=== PATIENT | male | born 1950 | race Caucasian/White ===

== ENCOUNTER 2021-06-29 16:26 | Inpatient (IN) | payer MEDICARE, OTHER ==
[~2021-06-29] VITALS: Ht 172.7 cm; Wt 65.1 kg
[2021-06-29] MEDS ORDERED: PIPERACILLIN /TAZOBACTAM 3.375 G in IV D5W 50 ML IV ONE (17:00)
[2021-06-29] MEDS ORDERED: IV NS 0.9% 1,000 ML BAG IV ONE (17:00)
[2021-06-29] MEDS ORDERED: VANCOMYCIN 1 GM in IV D5W 250 ML IV ONE (17:00)
[2021-06-29] MEDS ORDERED: NOREPINEPHRINE 8 MG in IV NS 0.9% 250 ML IV ONE (18:00)
[2021-06-29] MEDS ORDERED: FINA5TAB11 PO (18:08)
[2021-06-29] MEDS ORDERED: PHEN100C4 PO (18:08)
[2021-06-29] MEDS ORDERED: FAMO-131 PO (18:08)
[2021-06-29] MEDS ORDERED: CALC1TAB30 PO (18:08)
[2021-06-29] MEDS ORDERED: FURO-145 PO (18:08)
[2021-06-29] MEDS ORDERED: MULT-439 PO (18:08)
[2021-06-29] MEDS ORDERED: TRAM50TA2 PO (18:08)
[2021-06-29] MEDS ORDERED: SENN8.6T19 PO (18:08)
[2021-06-29] MEDS ORDERED: LISI20TA30 PO (18:08)
[2021-06-29] MEDS ORDERED: [UNRECOGNIZED DRUG - CODE] PO (18:08)
[2021-06-29] MEDS ORDERED: ZINC220C6 PO (18:08)
[2021-06-29] MEDS ORDERED: CHOL200013 PO (18:08)
[2021-06-29] MEDS ORDERED: APIX2.5T PO (18:08)
--- NOTE | 2021-06-29 19:00 | NUR ---
[facility]IC MOYA FROM [facility] FOR LOW O2 SAT: 89% ON RA, AND LOW BP=85/49. PT LETHARGIC, OPENS EYES. PT ON 12L VIA SIMPLE MASK DURING CHANGE OF SHIFT. PT ON LEVO DRIP AT 0.1 MCG/KG/MIN INFUSING AT L HAND 18G. PT ATTACHED TO MONITOR AND PULSE OX. WILL CONT TO MONITOR PATIENT Addendum: 06/29/21 at 2041 by MURPHY NOTED PT WITH COLOSTOMY BAG
--- NOTE | 2021-06-29 19:28 | NUR ---
COVID, FLU SWAB COLLECTED SENT TO LAB
--- NOTE | 2021-06-29 19:28 | NUR ---
COVID, FLU SWAB COLLECTED SENT TO LAB
[2021-06-29 19:29] LABS: CALCIUM, SERUM 7.6 mg/dL (8.5-10.1); CARBON DIOXIDE 27 mmol/L (21-32); CHLORIDE 114 mmol/L (98-107); CREATININE 2.2 mg/dL (0.6-1.3); GLUCOSE 165 mg/dL (74-106); POTASSIUM 4.6 mmol/L (3.5-5.1); SODIUM SERUM 153 mmol/L (136-145)
[2021-06-29 19:33] LABS: UREA NITROGEN, BLOOD 81 mg/dL (7-18)
[2021-06-29 19:35] LABS: ALANINE AMINOTRANSFERASE 71 U/L (12-78); ALBUMIN 2.5 g/dL (3.4-5.0); ALKALINE PHOSPHATASE 133 U/L (46-116); ASPARTATE AMINOTRANSFERASE 61 U/L (15-37); BILIRUBIN,DIRECT 1.1 mg/dL (0.0-0.2); BILIRUBIN,TOTAL 1.9 mg/dL (0.2-1.0)
--- NOTE | 2021-06-29 19:40 | NUR ---
LACTIC ACID 2.8 BUN 81
--- NOTE | 2021-06-29 19:40 | NUR ---
LACTIC ACID 2.8 BUN 81
--- NOTE | 2021-06-29 20:03 | NUR ---
UNABLE TO INSERT F/C WILL RETRY
--- NOTE | 2021-06-29 20:03 | NUR ---
UNABLE TO INSERT F/C WILL RETRY
[2021-06-29 20:06] LABS: EOSINOPHILS % (AUTO) 0.1 % (0.0-6.0); LYMPHOCYTES # (AUTO) 0.9 K/uL (0.8-4.8); MONOCYTES # (AUTO) 2.9 K/uL (0.1-1.30); WHITE BLOOD COUNT (AUTO) 21.4 K/uL (4.3-11.0)
[2021-06-29 20:15] LABS: BASOPHILS # (AUTO) 0.3 K/uL (0.0-0.2); BASOPHILS % (AUTO) 1.3 % (0.0-2.0); HEMATOCRIT 49 % (39-51); HEMOGLOBIN 15.8 g/dL (13.5-17.5); MEAN CORPUSCULAR HGB CONC 32 g/dl (31.0-36.0); MEAN CORPUSCULAR VOLUME 96 fL (80-96); MONOCYTES % (AUTO) 13.7 % (2.0-12.0); NEUTROPHILS # (AUTO) 17.3 K/uL (1.8-8.9); NEUTROPHILS % (AUTO) 80.9 % (43.0-81.0); RED BLOOD CELL COUNT(AUTO) 5.14 MIL/uL (4.5-6.0)
[2021-06-29 20:26] LABS: PLATELET COUNT (AUTO) 429 K/uL (150-450)
[2021-06-29] MEDS ORDERED: ACETAMINOPHEN 325 MG TABLET PO PRN (20:30)
[2021-06-29] MEDS ORDERED: MAG HYDROX/AL HYDROX/SIMETH 30 ML UDC PO PRN (20:30)
[2021-06-29] MEDS ORDERED: ONDANSETRON HCL/PF 4 MG/2 ML VIAL IVP PRN (20:30)
[2021-06-29] MEDS ORDERED: MAGNESIUM HYDROXIDE 30 ML UDC PO PRN (20:30)
[2021-06-29] MEDS ORDERED: Z GUARD REMEDY 4 OZ OINT TP PRN (20:30)
[2021-06-29 21:11] LABS: ABG BASE EXCESS -1.3 mmol/L; ABG PCO2 33.1 mmHg (35.0-45.0); ABG PH 7.438 (7.350-7.450); COHb 0.5 % (0.5-1.5); MetHb 0.5 % (0.0-1.5); O2Hb 98.2 % (94.0-97.0); SITE, ABG Left Brachial; VENT MODE, BG Simple Mask
[2021-06-29] MEDS ORDERED: MEROPENEM 500 MG in IV NS 0.9% 50 ML IV SCH (21:30)
--- NOTE | 2021-06-29 22:45 | NUR ---
ICU 256
--- NOTE | 2021-06-29 22:45 | NUR ---
ICU 256
--- NOTE | 2021-06-29 23:00 | NUR ---
KAT CATHETER INSERTED 16 FR, DRAINING TO A CLOUDY, YELLOW OUTPUT. URINE COLLECTED AND SENT TO LAB. ASEPTIC TECHNIQUE WAS OBSERVED.
--- NOTE | 2021-06-29 23:00 | NUR ---
KAT CATHETER INSERTED 16 FR, DRAINING TO A CLOUDY, YELLOW OUTPUT. URINE COLLECTED AND SENT TO LAB. ASEPTIC TECHNIQUE WAS OBSERVED.
--- NOTE | 2021-06-29 23:33 | NUR ---
REPORT GIVEN TO KRISTI IBARRA
--- NOTE | 2021-06-29 23:33 | NUR ---
REPORT GIVEN TO KRISTI IBARRA
--- NOTE | 2021-06-29 23:43 | NUR ---
PATIENT TRANSFERRED TO ICU 256 VIA ACLS PROTOCOL
--- NOTE | 2021-06-29 23:43 | NUR ---
PATIENT TRANSFERRED TO ICU 256 VIA ACLS PROTOCOL
--- NOTE | 2021-06-29 23:50 | NUR ---
PATIENT TRANSFERRED UNDER ACLS
--- NOTE | 2021-06-29 23:50 | NUR ---
PATIENT TRANSFERRED UNDER ACLS
--- NOTE | 2021-06-29 23:52 | NUR ---
Bebeto jacobson in [facility] - 06/29/21 at 2352 by ERVIN PATIENT TRANSFERRED UNDER ACLS
--- NOTE | 2021-06-29 23:52 | NUR ---
Bebeto jacobson in [facility] - 06/29/21 at 2352 by ERVIN PATIENT TRANSFERRED UNDER ACLS
[2021-06-29] MEDS: NOREPINEPHRINE 8 MG in IV NS 0.9% 242 ML IV PRN (23:55)
[2021-06-29 23:56] LABS: BILIRUBIN,URINE SMALL (NEGATIVE); COLOR,URINE YELLOW (YELLOW); LEUKOCYTE ESTERASE ,URINE MODERATE (NEGATIVE); NITRITE, URINE POSITIVE (NEGATIVE); PROTEIN,URINE 30 mg/dl (NEGATIVE); UGLUCOSE NEGATIVE (NEGATIVE)
[2021-06-30] VITALS (97 sets, daily range): BP systolic 72–124; BP diastolic 34–107
[2021-06-30] MEDS ORDERED: MEROPENEM 500 MG in IV NS 0.9% 50 ML IV ONE
[2021-06-30] MEDS: IV NS 0.9% 1,000 ML IV PRN ×3 (00:10→16:20)
[2021-06-30] MEDS: SENNOSIDES 8.6 MG TABLET PO SCH ×2 (00:49→21:03)
[2021-06-30] MEDS: APIXABAN 2.5 MG TABLET PO SCH ×3 (00:50→16:21)
[2021-06-30] MEDS ORDERED: MEROPENEM 500 MG VIAL IV ONE (00:54)
--- NOTE | 2021-06-30 02:12 | NUR ---
FISCAL SERVICES DIRECTOR CALLED [facility] TO GIVE INFO THAT PT WAS VACCINATED BUT UNKONW THE TYPE.
--- NOTE | 2021-06-30 02:12 | NUR ---
STUNT MAN CALLED [facility] TO GIVE INFO THAT PT WAS VACCINATED BUT UNKONW THE TYPE.
[2021-06-30 05:09] LABS: BASOPHILS # (AUTO) 0.2 K/uL (0.0-0.2); BASOPHILS % (AUTO) 0.8 % (0.0-2.0); EOSINOPHILS % (AUTO) 0.1 % (0.0-6.0); HEMATOCRIT 48 % (39-51); HEMOGLOBIN 15.3 g/dL (13.5-17.5); LYMPHOCYTES # (AUTO) 0.6 K/uL (0.8-4.8); MEAN CORPUSCULAR HGB CONC 32 g/dl (31.0-36.0); MEAN CORPUSCULAR VOLUME 96 fL (80-96); MONOCYTES # (AUTO) 2.3 K/uL (0.1-1.30); MONOCYTES % (AUTO) 11.3 % (2.0-12.0); NEUTROPHILS # (AUTO) 17.5 K/uL (1.8-8.9); NEUTROPHILS % (AUTO) 84.8 % (43.0-81.0); PLATELET COUNT (AUTO) 402 K/uL (150-450); RED BLOOD CELL COUNT(AUTO) 4.97 MIL/uL (4.5-6.0); WHITE BLOOD COUNT (AUTO) 20.6 K/uL (4.3-11.0)
[2021-06-30 05:41] LABS: CHOLESTEROL 100 mg/dL (<200); HDL CHOLESTEROL 36 mg/dL (40-60); LDL 58 mg/dL (0-99); TRIGLYCERIDES 57 mg/dL (30-150)
[2021-06-30 05:53] LABS: CALCIUM, SERUM 7.5 mg/dL (8.5-10.1); CARBON DIOXIDE 26 mmol/L (21-32); CHLORIDE 116 mmol/L (98-107); CREATININE 1.9 mg/dL (0.6-1.3); GLUCOSE 144 mg/dL (74-106); MAGNESIUM 2.6 mg/dL (1.8-2.4); PHOSPHORUS 4.8 mg/dL (2.5-4.9); POTASSIUM 4.7 mmol/L (3.5-5.1); SODIUM SERUM 153 mmol/L (136-145); UREA NITROGEN, BLOOD 75 mg/dL (7-18)
[2021-06-30 07:20] LABS: WBC,URINE 21-50 /HPF (0-3)
[2021-06-30 07:21] LABS: BACTERIA,URINE 1+ /HPF (None Seen); SQUAMOUS EPITHELIAL CELL,UR Rare /HPF (None Seen)
--- NOTE | 2021-06-30 08:00 | NUR ---
[facility]AVEL REGISTERED NURSE ONCOLOGY PT OPENS EYES TO TACTILE STIMULATION. DOES NO TRACK, DOES NOT FOLLOW COMMANDS. SPO2 100% ON 10L MASK. WILL TITRATE. BP STABLE ON LOW DOSE LEVO.
--- NOTE | 2021-06-30 08:00 | NUR ---
REHABILITATION THERAPY AIDE PT OPENS EYES TO TACTILE STIMULATION. DOES NO TRACK, DOES NOT FOLLOW COMMANDS. SPO2 100% ON 10L MASK. WILL TITRATE. BP STABLE ON LOW DOSE LEVO.
[2021-06-30] MEDS: CHOLECALCIFEROL 1,000 UNIT TABLET (VIT D3) PO SCH (08:57)
[2021-06-30] MEDS: ZINC SULFATE 220 MG CAPSULE PO SCH (08:57)
[2021-06-30] MEDS: CALCIUM CARB 250MG /VITAMIN D 1 UDTAB PO SCH (08:58)
[2021-06-30] MEDS: MULTIVITAMIN/LUTEIN/MINERALS 1 TAB PO SCH (08:58)
[2021-06-30] MEDS: PHENYTOIN EXTENDED RELEASE 100 MG CAPSULE PO SCH (08:58)
[2021-06-30] MEDS ORDERED: [UNRECOGNIZED DRUG - OTHER] PO SCH (09:00)
[2021-06-30] MEDS: MEROPENEM 1 G in IV NS 0.9% 100 ML IV SCH (12:08)
[2021-06-30] MEDS: NOREPINEPHRINE 8 MG in IV NS 0.9% 242 ML IV PRN (12:30)
[2021-06-30] MEDS ORDERED: VANCOMYCIN 1 GM in IV D5W 250 ML IV SCH (17:00)
[2021-07-01] VITALS (94 sets, daily range): BP systolic 86–122; BP diastolic 53–73
[2021-07-01] MEDS: MEROPENEM 1 G in IV NS 0.9% 100 ML IV SCH ×2 (00:01→11:31)
[2021-07-01] MEDS: NOREPINEPHRINE 8 MG in IV NS 0.9% 242 ML IV PRN ×3 (04:03→22:51)
[2021-07-01] MEDS: IV NS 0.9% 1,000 ML IV PRN (04:03)
[2021-07-01 05:23] LABS: BASOPHILS # (AUTO) 0.1 K/uL (0.0-0.2); BASOPHILS % (AUTO) 0.8 % (0.0-2.0); EOSINOPHILS % (AUTO) 0.5 % (0.0-6.0); HEMATOCRIT 47 % (39-51); LYMPHOCYTES # (AUTO) 0.6 K/uL (0.8-4.8); MEAN CORPUSCULAR HGB CONC 32 g/dl (31.0-36.0); MEAN CORPUSCULAR VOLUME 96 fL (80-96); MONOCYTES # (AUTO) 1.5 K/uL (0.1-1.30); MONOCYTES % (AUTO) 8.2 % (2.0-12.0); NEUTROPHILS # (AUTO) 16.1 K/uL (1.8-8.9); NEUTROPHILS % (AUTO) 87.5 % (43.0-81.0); PLATELET COUNT (AUTO) 489 K/uL (150-450); RED BLOOD CELL COUNT(AUTO) 4.85 MIL/uL (4.5-6.0); WHITE BLOOD COUNT (AUTO) 18.4 K/uL (4.3-11.0)
[2021-07-01 05:47] LABS: CALCIUM, SERUM 8.3 mg/dL (8.5-10.1); CARBON DIOXIDE 25 mmol/L (21-32); CHLORIDE 118 mmol/L (98-107); CREATININE 1.7 mg/dL (0.6-1.3); GLUCOSE 137 mg/dL (74-106); POTASSIUM 4.2 mmol/L (3.5-5.1); SODIUM SERUM 153 mmol/L (136-145); UREA NITROGEN, BLOOD 78 mg/dL (7-18)
--- NOTE | 2021-07-01 07:05 | NUR ---
RECEIVED PT ON BED OBTUNDED OPEN EYES TO STIMULI, SINUS RHYTHM ON THE MONITOR HR 90'S ON ROOM AIR SPO2 96-98% NO SOB NOTED, ON LEVOPHED AT 0.2 MCG/KG/MIN AND NS @ 100 ML/HR INFUSING VIA FANNY PICC HAVE R-WRIST # 20 AND L-HAND # 20 PATENT AND FLUSHED, HAVE COLOSTOMY BAG ON PLACE, HAVE KAT CATHETER IN PLACE DRAINING YELLOW URINE VIA GRAVITY, BED ON LOWEST POSITION AND LOCKED SIDE RAILS UP X2 WILL CONT TO MONITOR
[2021-07-01] MEDS: PHENYTOIN EXTENDED RELEASE 100 MG CAPSULE PO SCH (08:07)
[2021-07-01] MEDS: MULTIVITAMIN/LUTEIN/MINERALS 1 TAB PO SCH (08:08)
[2021-07-01] MEDS: CALCIUM CARB 250MG /VITAMIN D 1 UDTAB PO SCH (08:08)
[2021-07-01] MEDS: CHOLECALCIFEROL 1,000 UNIT TABLET (VIT D3) PO SCH (08:08)
[2021-07-01] MEDS: APIXABAN 2.5 MG TABLET PO SCH ×2 (08:10→17:04)
[2021-07-01] MEDS: ZINC SULFATE 220 MG CAPSULE PO SCH (08:12)
[2021-07-01] MEDS: IV D5/0.45 NACL 1,000 ML IV SCH ×2 (09:08→20:09)
[2021-07-01] MEDS: JEVITY 1.2 CAL 1,000 ML BOTTLE GT PRN (11:58)
[2021-07-01] MEDS: SENNOSIDES 8.6 MG TABLET PO SCH (22:25)
[2021-07-02] VITALS (43 sets, daily range): BP systolic 83–121; BP diastolic 44–70
[2021-07-02] MEDS: MEROPENEM 1 G in IV NS 0.9% 100 ML IV SCH ×2 (00:31→11:02)
[2021-07-02 04:56] LABS: CALCIUM, SERUM 7.7 mg/dL (8.5-10.1); CARBON DIOXIDE 24 mmol/L (21-32); CHLORIDE 118 mmol/L (98-107); CREATININE 1.5 mg/dL (0.6-1.3); GLUCOSE 140 mg/dL (74-106); POTASSIUM 3.6 mmol/L (3.5-5.1); SODIUM SERUM 151 mmol/L (136-145); UREA NITROGEN, BLOOD 61 mg/dL (7-18)
[2021-07-02 05:20] LABS: BASOPHILS # (AUTO) 0.1 K/uL (0.0-0.2); BASOPHILS % (AUTO) 0.5 % (0.0-2.0); EOSINOPHILS % (AUTO) 1.7 % (0.0-6.0); HEMATOCRIT 44 % (39-51); HEMOGLOBIN 14.1 g/dL (13.5-17.5); LYMPHOCYTES # (AUTO) 0.4 K/uL (0.8-4.8); LYMPHOCYTES % (AUTO) 2.9 % (20.0-44.0); MEAN CORPUSCULAR HGB CONC 32 g/dl (31.0-36.0); MEAN CORPUSCULAR VOLUME 96 fL (80-96); MONOCYTES # (AUTO) 0.8 K/uL (0.1-1.30); MONOCYTES % (AUTO) 6.2 % (2.0-12.0); NEUTROPHILS # (AUTO) 11.9 K/uL (1.8-8.9); NEUTROPHILS % (AUTO) 88.7 % (43.0-81.0); PLATELET COUNT (AUTO) 426 K/uL (150-450); RED BLOOD CELL COUNT(AUTO) 4.58 MIL/uL (4.5-6.0); WHITE BLOOD COUNT (AUTO) 13.4 K/uL (4.3-11.0)
[2021-07-02] MEDS: IV D5/0.45 NACL 1,000 ML IV SCH ×2 (07:21→14:08)
--- NOTE | 2021-07-02 07:36 | NUR ---
WOUND CARE CONSULT: PT PRESENTS WITH GENERALIZED EDEMA INCLUDING SCROTUM, SACRAL DEEP TISSUE INJURY IN EVOLUTION AND RT LOWER LEG WOUND, PRESENT ON ADMISSION. SURGICAL AND DPM CONSULTS TO BE CALLED TO DR WARD AND DR PAT THIS AM. RECOMMENDATIONS MADE FOR SACRAL WOUND CARE AND SKIN PROTECTION. DISCUSSED WITH NURSING STAFF. FIRST STEP LOW AIRLOSS MATTRESS IS ON ORDER. MD IN AGREEMENT WITH PLAN OF CARE. Addendum: 07/02/21 at 0739 by ELISEO ESPINOZA WNDNU Amended: Links added.
--- NOTE | 2021-07-02 07:51 | NUR ---
RN NOTE PATIENT IS IN BED WITH HOB AT SEMI FOWLERS POSITION. PATIENT IS ON ROOM AIR WITH NO SIGNS OF LABORED BREATHING. PATIENT IS AWAKE AND NONVERBAL. KAT CATHETER IS IN PLACE. GTUBE IN PLACE. FANNY PICC IS PATENT AND INTACT. BED IS LOCKED IN THE LOWEST POSITION, 3 GUARD RAILS RAISED, CALL BAILON WITHIN REACH, AND ALL HOSPITAL SAFETY PRECAUTIONS ARE BEING FOLLOWED. WILL CONTINUE TO MONITOR THROUGHOUT SHIFT.
[2021-07-02] MEDS: CALCIUM CARB 250MG /VITAMIN D 1 UDTAB PO SCH (08:03)
[2021-07-02] MEDS: ZINC SULFATE 220 MG CAPSULE PO SCH (08:03)
[2021-07-02] MEDS: PHENYTOIN EXTENDED RELEASE 100 MG CAPSULE PO SCH (08:03)
[2021-07-02] MEDS: CHOLECALCIFEROL 1,000 UNIT TABLET (VIT D3) PO SCH (08:03)
[2021-07-02] MEDS: MULTIVITAMIN/LUTEIN/MINERALS 1 TAB PO SCH (08:04)
[2021-07-02] MEDS: APIXABAN 2.5 MG TABLET PO SCH ×2 (08:06→16:15)
[2021-07-02] MEDS: JEVITY 1.2 CAL 1,000 ML BOTTLE GT PRN (16:21)
--- NOTE | 2021-07-02 19:01 | NUR ---
RN NOTE PATIENT IS IN BED WITH HOB AT SEMI FOWLERS POSITION. PATIENT IS ON ROOM AIR WITH NO SIGNS OF LABORED BREATHING. PATIENT IS AWAKE AND NONVERBAL. KAT CATHETER IS IN PLACE. GTUBE IN PLACE. FANNY PICC IS PATENT AND INTACT. BED IS LOCKED IN THE LOWEST POSITION, 3 GUARD RAILS RAISED, CALL BAILON WITHIN REACH, AND ALL HOSPITAL SAFETY PRECAUTIONS ARE BEING FOLLOWED. ALL DUE MEDICATIONS GIVEN AND PATIENT REMAINED STABLE THROUGHOUT SHIFT. WILL ENDORSE TO FACILITIES PROJECT MANAGER RN.
[2021-07-02] MEDS: SENNOSIDES 8.6 MG TABLET PO SCH (23:17)
[2021-07-03] VITALS (21 sets, daily range): BP systolic 90–140; BP diastolic 47–90
[2021-07-03] MEDS: MEROPENEM 1 G in IV NS 0.9% 100 ML IV SCH ×3 (01:18→23:40)
[2021-07-03] MEDS: IV D5/0.45 NACL 1,000 ML IV SCH ×3 (01:32→23:41)
[2021-07-03 06:14] LABS: BASOPHILS # (AUTO) 0.1 K/uL (0.0-0.2); BASOPHILS % (AUTO) 0.8 % (0.0-2.0); EOSINOPHILS % (AUTO) 5.1 % (0.0-6.0); HEMATOCRIT 41 % (39-51); HEMOGLOBIN 13.3 g/dL (13.5-17.5); LYMPHOCYTES # (AUTO) 0.4 K/uL (0.8-4.8); LYMPHOCYTES % (AUTO) 4.6 % (20.0-44.0); MEAN CORPUSCULAR HGB CONC 32 g/dl (31.0-36.0); MEAN CORPUSCULAR VOLUME 95 fL (80-96); MONOCYTES # (AUTO) 0.6 K/uL (0.1-1.30); NEUTROPHILS # (AUTO) 7.9 K/uL (1.8-8.9); NEUTROPHILS % (AUTO) 83.5 % (43.0-81.0); PLATELET COUNT (AUTO) 346 K/uL (150-450); WHITE BLOOD COUNT (AUTO) 9.5 K/uL (4.3-11.0)
[2021-07-03 07:06] LABS: CALCIUM, SERUM 8.1 mg/dL (8.5-10.1); CREATININE 1.2 mg/dL (0.6-1.3); POTASSIUM 3.6 mmol/L (3.5-5.1)
--- NOTE | 2021-07-03 07:07 | NUR ---
INKING MACHINE TENDER. WAYNE SHERWOOD. REMAINING SAME IVF RUNNING. PT IS ROOM AIR. SAT 98%. NO ACUTE DISTRESS NOTED. FC PATENT. URINE DRAINING. PT IS STABLE.
--- NOTE | 2021-07-03 07:07 | NUR ---
SENIOR MANAGING DIRECTOR. WAYNE SHERWOOD. REMAINING SAME IVF RUNNING. PT IS ROOM AIR. SAT 98%. NO ACUTE DISTRESS NOTED. FC PATENT. URINE DRAINING. PT IS STABLE.
--- NOTE | 2021-07-03 07:30 | NUR ---
RN OPENING NOTE RECEIVE REPORT FROM CONTACT ASSEMBLER NURSE. PATIENT IN STABLE CONDITION AT TIME OF REPORT. PATIENT IS ON ROOM AIR AND TOLERATING WELL. RECEIVING G-TUBE FEEDING WITH JEVITY 1.2 @ 50ML/HR. THE GOAL IS TO GET TO 70ML/HR. RECEIVING IV FLUID OF D5 1/2 NS @ 100ML/HR. PROPER ISOLATION PRECAUTION IN PLACE. NEED TO GET CONSENT FOR WOULD DEBRIDEMENT. WILL FOLLOW UP AM LABS AND DOCTOR ORDERS. ALL SAFETY MEASURE IN PLACE. BED ON LOWEST POSITION WITH HOB ELEVATED AND 3 SIDE RAIL UP. CALL LIGHT WITHIN REACH. WILL CONTINUE TO MONITOR.
--- NOTE | 2021-07-03 07:30 | NUR ---
RN OPENING NOTE RECEIVE REPORT FROM MANAGER FILE NURSE. PATIENT IN STABLE CONDITION AT TIME OF REPORT. PATIENT IS ON ROOM AIR AND TOLERATING WELL. RECEIVING G-TUBE FEEDING WITH JEVITY 1.2 @ 50ML/HR. THE GOAL IS TO GET TO 70ML/HR. RECEIVING IV FLUID OF D5 1/2 NS @ 100ML/HR. PROPER ISOLATION PRECAUTION IN PLACE. NEED TO GET CONSENT FOR WOULD DEBRIDEMENT. WILL FOLLOW UP AM LABS AND DOCTOR ORDERS. ALL SAFETY MEASURE IN PLACE. BED ON LOWEST POSITION WITH HOB ELEVATED AND 3 SIDE RAIL UP. CALL LIGHT WITHIN REACH. WILL CONTINUE TO MONITOR.
[2021-07-03] MEDS: CALCIUM CARB 250MG /VITAMIN D 1 UDTAB PO SCH (08:42)
[2021-07-03] MEDS: CHOLECALCIFEROL 1,000 UNIT TABLET (VIT D3) PO SCH (08:42)
[2021-07-03] MEDS: MULTIVITAMIN/LUTEIN/MINERALS 1 TAB PO SCH (08:42)
[2021-07-03] MEDS: ZINC SULFATE 220 MG CAPSULE PO SCH (08:42)
[2021-07-03] MEDS: PHENYTOIN EXTENDED RELEASE 100 MG CAPSULE PO SCH (08:43)
[2021-07-03] MEDS: APIXABAN 2.5 MG TABLET PO SCH ×2 (08:45→18:48)
[2021-07-03] MEDS: THERAHONEY GEL 1.5 OZ TUBE TP SCH (08:48)
--- NOTE | 2021-07-03 11:18 | NUR ---
RN NOTE PATIENT WAS TRANSFER TO 325 BED 2. REPORT WAS GIVEN TO INO BERRY. PATIENT IN STABLE CONDITION WITH NO SIGN OF DISTRESS AT TIME OF TRANSPORT.
--- NOTE | 2021-07-03 11:30 | NUR ---
RN NOTES PATIENT WAS TRANSFER TO UNIT FROM ICU PATIENT IS AWAKE IN BED RESTING, A/O X1. VITAL SINGS STABLE, T: 98.5, R: 18, P:67, BP: 129/67, O2: 98. NO S/S OF PAIN NOTED AT THIS TIME. ON ROOM AIR, NO DISTRESS OR SHORTNESS OF BREATH NOTED. IV ACCESS R WRIST #18G, L WRIST #20G, FANNY PICC LINE, INTACT AND PATENT, FLUSHING WELL. PATIENT HAVE KAT CATH, IN PLACE AND DRAINING WELL. PATIENT HAVE A G-TUBE, TOLERATING FEEDING. PATIENT HAVE EXTERNAL PROGRAM MANAGER SLP , S.R. HR 66. FALL AND SAFETY MEASURES IN PLACE, BED ALARM ON, BED IN LOW AND LOCK POSITION, CALL LIGHT AND TABLE WITHIN EASY REACH, SIDE RAIL UP X2. WILL CONTINUE TO MONITOR.
--- NOTE | 2021-07-03 11:30 | NUR ---
RN NOTES PATIENT WAS TRANSFER TO UNIT FROM ICU PATIENT IS AWAKE IN BED RESTING, A/O X1. VITAL SINGS STABLE, T: 98.5, R: 18, P:67, BP: 129/67, O2: 98. NO S/S OF PAIN NOTED AT THIS TIME. ON ROOM AIR, NO DISTRESS OR SHORTNESS OF BREATH NOTED. IV ACCESS R WRIST #18G, L WRIST #20G, FANNY PICC LINE, INTACT AND PATENT, FLUSHING WELL. PATIENT HAVE KAT CATH, IN PLACE AND DRAINING WELL. PATIENT HAVE A G-TUBE, TOLERATING FEEDING. PATIENT HAVE EXTERNAL INDUSTRIAL CHEMIST , S.R. HR 66. FALL AND SAFETY MEASURES IN PLACE, BED ALARM ON, BED IN LOW AND LOCK POSITION, CALL LIGHT AND TABLE WITHIN EASY REACH, SIDE RAIL UP X2. WILL CONTINUE TO MONITOR.
--- NOTE | 2021-07-03 19:59 | NUR ---
RN NOTES PATIENT IS AWAKE IN BED RESTING, A/O X1. NO S/S OF PAIN NOTED AT THIS TIME. ON ROOM AIR, NO DISTRESS OR SHORTNESS OF BREATH NOTED. IV ACCESS R WRIST #18G, L WRIST #20G, FANNY PICC LINE, INTACT AND PATENT, FLUSHING WELL. PATIENT HAVE KAT CATH, IN PLACE AND DRAINING WELL. PATIENT HAVE A G-TUBE, TOLERATING FEEDING. PATIENT HAVE EXTERNAL PAINT SPRAY TENDER , S.R. HR 66. FALL AND SAFETY MEASURES IN PLACE, BED ALARM ON, BED IN LOW AND LOCK POSITION, CALL LIGHT AND TABLE WITHIN EASY REACH, SIDE RAIL UP X2. WILL ENDORSE TO PLANT PHYSIOLOGIST.
--- NOTE | 2021-07-03 19:59 | NUR ---
RN NOTES PATIENT IS AWAKE IN BED RESTING, A/O X1. NO S/S OF PAIN NOTED AT THIS TIME. ON ROOM AIR, NO DISTRESS OR SHORTNESS OF BREATH NOTED. IV ACCESS R WRIST #18G, L WRIST #20G, FANNY PICC LINE, INTACT AND PATENT, FLUSHING WELL. PATIENT HAVE KAT CATH, IN PLACE AND DRAINING WELL. PATIENT HAVE A G-TUBE, TOLERATING FEEDING. PATIENT HAVE EXTERNAL WRAPPER SIZER , S.R. HR 66. FALL AND SAFETY MEASURES IN PLACE, BED ALARM ON, BED IN LOW AND LOCK POSITION, CALL LIGHT AND TABLE WITHIN EASY REACH, SIDE RAIL UP X2. WILL ENDORSE TO SECTION WEAVER.
--- NOTE | 2021-07-03 20:00 | NUR ---
TELERN ASLEEP EASILY AWAKENED WHEN TOUCHED. GT FEEDINGS AT 50CC/HR TOLERATED, MAINTAINED HOB ELEVATED AT ALL TIMES. PRESENT IVF INFUSING WELL. REPOSITIONED. KEPT COMFORTABLE.
--- NOTE | 2021-07-03 20:00 | NUR ---
TELERN ASLEEP EASILY AWAKENED WHEN TOUCHED. GT FEEDINGS AT 50CC/HR TOLERATED, MAINTAINED HOB ELEVATED AT ALL TIMES. PRESENT IVF INFUSING WELL. REPOSITIONED. KEPT COMFORTABLE.
[2021-07-03] MEDS: SENNOSIDES 8.6 MG TABLET PO SCH (21:56)
[2021-07-03] MEDS: JEVITY 1.2 CAL 1,000 ML BOTTLE GT PRN (23:40)
[2021-07-04] VITALS: BP 125/51
[2021-07-04 04:00] VITALS: BP 121/59
--- NOTE | 2021-07-04 06:30 | NUR ---
TELERN LABS DRAWN VIA PICC LINE. IVF CONTINUED. GT FEEDINGS TOLERATED, NO RISIDUALS
--- NOTE | 2021-07-04 06:30 | NUR ---
TELERN LABS DRAWN VIA PICC LINE. IVF CONTINUED. GT FEEDINGS TOLERATED, NO RISIDUALS
[2021-07-04 06:45] LABS: BASOPHILS % (AUTO) 0.5 % (0.0-2.0); EOSINOPHILS % (AUTO) 4.1 % (0.0-6.0); HEMATOCRIT 42 % (39-51); HEMOGLOBIN 13.7 g/dL (13.5-17.5); LYMPHOCYTES # (AUTO) 0.4 K/uL (0.8-4.8); LYMPHOCYTES % (AUTO) 4.1 % (20.0-44.0); MEAN CORPUSCULAR HGB CONC 33 g/dl (31.0-36.0); MEAN CORPUSCULAR VOLUME 96 fL (80-96); MONOCYTES # (AUTO) 0.8 K/uL (0.1-1.30); MONOCYTES % (AUTO) 7.6 % (2.0-12.0); NEUTROPHILS # (AUTO) 8.8 K/uL (1.8-8.9); NEUTROPHILS % (AUTO) 83.7 % (43.0-81.0); PLATELET COUNT (AUTO) 378 K/uL (150-450); RED BLOOD CELL COUNT(AUTO) 4.35 MIL/uL (4.5-6.0); WHITE BLOOD COUNT (AUTO) 10.5 K/uL (4.3-11.0)
[2021-07-04 07:17] LABS: CALCIUM, SERUM 8.1 mg/dL (8.5-10.1); CREATININE 0.9 mg/dL (0.6-1.3); MAGNESIUM 2.2 mg/dL (1.8-2.4); PHOSPHORUS 1.9 mg/dL (2.5-4.9)
--- NOTE | 2021-07-04 07:20 | NUR ---
SENIOR CISCO NETWORK ENGINEER OPENING NOTES PATIENT IS IN BED WITH EYES CLOSED, RESPONDS TO VERBAL AND PHYSICAL STIMULI. NONVERBAL, A/O X1. EQUAL CHEST EXPANSION DURING RESPIRATIONS ON RA WITH NO S/SX OF DISTRESS. TELE MONITOR SHOWS SR 78 BMP WITH A BUNDLE. PEG TUBE IN PLACE WITH JEVITY 1.2 RUNNING @ 50ML/HR. R UA MIDLINE WITH D5 1/2 NS RUNNING @ 100ML/HR. ALL SAFETY MEASURE IN PLACE. BED ON LOWEST POSITION WITH HOB ELEVATED AND 3 SIDE RAILS UP. CALL LIGHT WITHIN REACH. WILL CONTINUE TO MONITOR.
[2021-07-04 08:00] VITALS: BP 101/64
[2021-07-04] MEDS: APIXABAN 2.5 MG TABLET PO SCH (09:03)
[2021-07-04] MEDS: PHENYTOIN EXTENDED RELEASE 100 MG CAPSULE PO SCH (09:03)
[2021-07-04] MEDS: CHOLECALCIFEROL 1,000 UNIT TABLET (VIT D3) PO SCH (09:04)
[2021-07-04] MEDS: MULTIVITAMIN/LUTEIN/MINERALS 1 TAB PO SCH (09:04)
[2021-07-04] MEDS: IV D5/0.45 NACL 1,000 ML IV SCH (09:04)
[2021-07-04] MEDS: ZINC SULFATE 220 MG CAPSULE PO SCH (09:04)
[2021-07-04] MEDS: CALCIUM CARB 250MG /VITAMIN D 1 UDTAB PO SCH (09:04)
[2021-07-04] MEDS: THERAHONEY GEL 1.5 OZ TUBE TP SCH (09:05)
[2021-07-04] MEDS: POTASSIUM PHOSPHATE MM 5 MMOL in IV NS 0.9% 100 ML IV SCH ×2 (09:41→11:58)
[2021-07-04] MEDS ORDERED: MERO500V23 IV (11:16)
[2021-07-04 12:00] VITALS: BP 131/61
[2021-07-04] MEDS ORDERED: NEUTRA PHOS 1 POWD.PACKET NG ONE (12:30)
[2021-07-04] MEDS: MEROPENEM 1 G in IV NS 0.9% 100 ML IV SCH (14:05)
--- NOTE | 2021-07-04 15:58 | NUR ---
RN NOTES TRIED CALLING [facility] TO GIVE REPORT FOR PATIENT THAT IS BEING TRANSFERRED. WAS NOTIFIED THAT RETAIL SALES LEAD IS BUST AT THE MOMENT AND WILL RETURN CALL.
--- NOTE | 2021-07-04 15:58 | NUR ---
RN NOTES TRIED CALLING [facility] TO GIVE REPORT FOR PATIENT THAT IS BEING TRANSFERRED. WAS NOTIFIED THAT AWNINGS MECHANIC IS BUST AT THE MOMENT AND WILL RETURN CALL.
[2021-07-04 16:00] VITALS: BP 115/63
--- NOTE | 2021-07-04 16:41 | NUR ---
HORTICULTURE WORKER NOTES PATIENT IS STABLE TO DISCHARGE. V/S WNL. CALLED AND GAVE REPORT TO KRISTI JOHNSON AT [facility] [place] [place]. ALL PERIPHERAL IV LINES REMOVED. NOT BLEEDING NOTED. F/C AND YE PICC LEFT KEPT IN PLACE FOR CONTINUITY OF CARE BOTH INTACT AND PATENT. PATIENT WAS PICKED UP BY ISAIAH [id number] AND ACCOMPANIED BY 2 EMT'S. DISCHARGE INSTRUCTIONS AND EDUCATIONAL PACKET WERE PROVIDED. ALL BELONGINGS ACCOUNTED FOR AND ALL FORMS SIGNED. PHOTOS WERE DOCUMENTED.
--- NOTE | 2021-07-04 16:41 | NUR ---
PRODUCTION SPECIALIST NOTES PATIENT IS STABLE TO DISCHARGE. V/S WNL. CALLED AND GAVE REPORT TO KRISTI JOHNSON AT [facility]. ALL PERIPHERAL IV LINES REMOVED. NOT BLEEDING NOTED. F/C AND YE PICC LEFT KEPT IN PLACE FOR CONTINUITY OF CARE BOTH INTACT AND PATENT. PATIENT WAS PICKED UP BY ISAIAH [id number] AND ACCOMPANIED BY 2 EMT'S. DISCHARGE INSTRUCTIONS AND EDUCATIONAL PACKET WERE PROVIDED. ALL BELONGINGS ACCOUNTED FOR AND ALL FORMS SIGNED. PHOTOS WERE DOCUMENTED.
== END 2021-07-04 16:45 | DRG 871 ==
LOC: ER 16:30 → ICU 22:55 → TELE 07-03 10:49
PROVIDERS: ADMIT Nurse Practitioner Acute Care; ATTEND Internal Medicine
PROC: 02HV33Z Insertion of Infusion Device into Superior Vena Cava, Percutaneous Approach (ICD-10-PCS; principal; 2021-06-29)
PROC: B548ZZA Ultrasonography of Superior Vena Cava, Guidance (ICD-10-PCS; 2021-06-29)
DX: A41.9 Sepsis, unspecified organism (principal); L89.513 Pressure ulcer of right ankle, stage 3; L89.154 Pressure ulcer of sacral region, stage 4; G93.41 Metabolic encephalopathy; J96.01 Acute respiratory failure with hypoxia; N17.0 Acute kidney failure with tubular necrosis; R53.2 Functional quadriplegia; J69.0 Pneumonitis due to inhalation of food and vomit; I21.A1 Myocardial infarction type 2; R65.21 Severe sepsis with septic shock; D68.59 Other primary thrombophilia; E87.0 Hyperosmolality and hypernatremia; N39.0 Urinary tract infection, site not specified; Z16.12 Extended spectrum beta lactamase (ESBL) resistance; Z20.822 Contact with and (suspected) exposure to COVID-19; Z86.73 Personal history of transient ischemic attack (TIA), and cerebral infarction without residual deficits; I10 Essential (primary) hypertension; R13.10 Dysphagia, unspecified; K21.9 Gastro-esophageal reflux disease without esophagitis; N40.0 Benign prostatic hyperplasia without lower urinary tract symptoms; Z85.828 Personal history of other malignant neoplasm of skin; M81.0 Age-related osteoporosis without current pathological fracture; Z93.3 Colostomy status; Z93.0 Tracheostomy status; Z93.1 Gastrostomy status; Z79.01 Long term (current) use of anticoagulants; Z79.899 Other long term (current) drug therapy; R74.01 Elevation of levels of liver transaminase levels; Y95 Nosocomial condition; E86.1 Hypovolemia; I48.0 Paroxysmal atrial fibrillation; G40.909 Epilepsy, unspecified, not intractable, without status epilepticus; E86.0 Dehydration; F09 Unspecified mental disorder due to known physiological condition; M24.561 Contracture, right knee; Z87.440 Personal history of urinary (tract) infections; M62.50 Muscle wasting and atrophy, not elsewhere classified, unspecified site
CPT/HCPCS: 36415; 36600; 71045-TC; 80048-TC; 80061-TC; 80076-TC; 80185-TC; 80202-TC; 81001; 83605-TC; 83735-TC; 84100-TC; 84484-TC; 85025-TC; 85730-TC; 87040-TC; 87081-TC; 87086-TC; 87186-TC; 92526; 92611-TC; 93307-TC; A6253; C1751; C9803; G0378; J2185; J2543; J3370; J3490; J7030; J7050; J7060; J7070